=== PATIENT | female | born 1955 | race Caucasian/White ===

== ENCOUNTER 2017-08-01 22:04 | Emergency (ER) | payer OTHER ==
[2017-08-01 22:11] VITALS: RESP 16
--- NOTE | 2017-08-01 23:30 | ED PDOC ---
HPI: Abdomen Time Seen by Provider: 08/01/17 22:13 Chief Complaint (Nursing): Abdominal Pain Chief Complaint (Provider): Abdominal Pain History Per: Patient History/Exam Limitations: no limitations Onset/Duration Of Symptoms: Hrs (x3) Outside of [place] travel?: No Current Symptoms Are (Timing): Still Present Associated Symptoms: Nausea, Vomiting Last Bowel Movement: Days Ago (x2) Additional Complaint(s): 62 year old female presents to ED with complaints of abdominal pain x3 hours and has a past medical history of Hypertension. Patient notes that she had a right knee replacement at [facility] x1 week ago and has been taking 2 Percocet and Dulcolax QD. Reports daughter gave 3 Dulcolax pills at once x3 horus ago. (+) nausea and vomiting x several times (non-bloody, non-bilious). Confirms no bowel movement in the last 2 days. PCP: Tommy Past Medical History Reviewed: Historical Data, Nursing Documentation, Vital Signs Vital Signs: Last Vital Signs Temp 98.1 F 08/01/17 22:07 Pulse 67 08/01/17 22:07 Resp 16 08/01/17 22:07 BP 152/84 H 08/01/17 22:07 Pulse Ox 100 08/01/17 23:34 - Medical History PMH: HTN - Surgical History Other surgeries: Right knee replacement - Family History Family History: States: Unknown Family Hx - Social History Drugs: Denies - Home Medications Home Medications: Ambulatory Orders Medication Instructions Recorded Ondansetron [Zofran] 4 mg PO Q8H #12 tab 08/01/17 - Allergies Allergies/Adverse Reactions: Allergies Allergy/AdvReac Type Severity Reaction Status Date / Time No Known Allergies Allergy Verified 08/01/17 22:06 Review of Systems ROS Statement: Except As Marked, All Systems Reviewed And Found Negative Gastrointestinal: Positive for: Nausea, Vomiting, Abdominal Pain. Negative for : Hematemesis Physical Exam - Reviewed Nursing Documentation Reviewed: Yes Vital Signs Reviewed: Yes - Physical Exam Appears: Positive for: Uncomfortable Skin: Positive for: Normal Color, Warm, Dry Cardiovascular/Chest: Positive for: Regular Rate, Rhythm. Negative for: Murmur Respiratory: Positive for: Normal Breath Sounds. Negative for: Respiratory Distress Gastrointestinal/Abdominal: Positive for: Soft, Tenderness (minimally TTP) Extremity: Negative for: Deformity Neurologic/Psych: Positive for: Alert, Oriented. Negative for: Motor/Sensory Deficits - ECG O2 Sat by Pulse Oximetry: 100 (RA) Pulse Ox Interpretation: Normal Medical Decision Making Medical Decision Makin Initial impression: constipation Initial plan: * XR OBSTRUCTIVE SERIES * Enulose 20gm PO * Phosphate Enema 135mL DE * Zofran Inj 4mg IM * Re-evaluation 0000 Pt. had large BM after enema and is feeling much better. Explained proper use of laxatives and encouraged increased water consumption. Return precautions discussed. Scribe Attestation: Documented by Glory Dong acting as a scribe for Ricky Patel MD. Scribe Attestation: All medical record entries made by the Scribe were at my direction and personally dictated by me. I have reviewed the chart and agree that the record accurately reflects my personal performance of the history, physical exam, medical decision making, and the department course for this patient. I have also personally directed, reviewed, and agree with the discharge instructions and disposition. Disposition - Clinical Impression Clinical Impression: Constipation - Disposition Referrals: Tyrone Sanders MD [Staff Provider] - Disposition: Routine/Home Disposition Time: 00:00 Condition: IMPROVED Prescriptions: Ondansetron [Zofran] 4 mg PO Q8H #12 tab Instructions: Constipation (ED) Forms: [facility] (Arabic) Print Language: LUXEMBOURGISH
[2017-08-02 00:27] VITALS: BP 122/78; PULSE 86; TEMP 98.2; O2SAT 98
--- NOTE | 2017-08-02 11:54 | RAD ---
PROCEDURE: Radiographs of the chest and abdomen (obstructive series) HISTORY: abd pain, constipation s/p knee surgery/opiates COMPARISON: No prior. TECHNIQUE: AP radiograph of the chest, with upright and supine radiographs of the abdomen. FINDINGS: CHEST: Lungs: Clear. Cardiovascular: Normal size heart. No pulmonary vascular congestion. Pleura: No pleural fluid. No pneumothorax. Other findings: None. ABDOMEN AND PELVIS: Bowel: Unremarkable bowel gas pattern. No evidence of mechanical obstruction. Free air: None. Bones: Unremarkable. Other findings: None. IMPRESSION: Unremarkable radiographs of chest and abdomen. No evidence of mechanical bowel obstruction. Concordant results with the preliminary interpretation rendered by the emergency department physician procedure.
== END 2017-08-02 00:28 | disposition home or self-care (01) ==
LOC: H.ER 22:04
DX: K59.00 Constipation, unspecified (principal); I10 Essential (primary) hypertension
CPT/HCPCS: 74022; 96372; 99283; J2405

== ENCOUNTER 2018-01-24 10:13 | Inpatient (IN) | payer OTHER ==
[2018-01-24 10:32] VITALS: BMI 30.2
[2018-01-24] MEDS ORDERED: Sodium Chloride 0.9% 1,000 ML IV STA (11:06)
--- NOTE | 2018-01-24 11:10 | ED PDOC ---
Upper Extremity Pain/Injury Time Seen by Provider: 01/24/18 10:37 Chief Complaint (Nursing): Upper Extremity Problem/Injury Chief Complaint (Provider): Right elbow pain, swelling after hitting right against metal History Per: Patient History/Exam Limitations: no limitations Onset/Duration Of Symptoms: Days (6) Current Symptoms Are (Timing): Still Present Additional Complaint(s): 62 yo female with HTN presents with right elbow pain for 6 days. Pt states she hit the elbow against metal and didnt think anything off it. PT states she has a small scratch which developed into redness and now swelling. Pt states she cannot bent the right elbow due to pain and swelling. PT reports feeling feverisht with chilld last night. PT takes NSAIDs BID for left knee pain and states she took her normal dose this morning. Past Medical History Reviewed: Historical Data, Nursing Documentation, Vital Signs Vital Signs: Last Vital Signs Temp 98 F 01/24/18 10:57 Pulse 66 01/24/18 10:57 Resp 16 01/24/18 10:57 BP 104/67 01/24/18 10:57 Pulse Ox 96 01/24/18 10:57 - Medical History PMH: HTN - Surgical History Surgical History: No Surg Hx - Family History Family History: States: Unknown Family Hx - Living Arrangements Living Arrangements: With Family - Social History Current smoker - smoking cessation education provided: No Alcohol: None Drugs: Denies - Home Medications Home Medications: Ambulatory Orders Medication Instructions Recorded Cyanocobalamin [Vitamin B12 1000 1 tab PO DAILY 01/24/18 mcg Tab] Diclofenac Sodium [Voltaren] 75 mg PO Q12 01/24/18 Esomeprazole Magnesium [Nexium] 40 mg PO DAILY 01/24/18 Latanoprost 0.005% Opht [Xalatan 1 drop EACHEYE HS 01/24/18 Opht] Linaclotide [Linzess] 72 mcg PO HS 01/24/18 Multivitamin [Multi-Vitamin Daily] 1 tab PO DAILY 01/24/18 Turmeric Root Extract [Turmeric] 500 mg PO DAILY 01/24/18 amLODIPine [Norvasc] 5 mg PO HS 01/24/18 oxyCODONE/Acetaminophen [Percocet 1 tab PO Q6 PRN 01/24/18 5/325 mg Tab] - Allergies Allergies/Adverse Reactions: Allergies Allergy/AdvReac Type Severity Reaction Status Date / Time No Known Allergies Allergy Verified 01/24/18 10:57 Review of Systems ROS Statement: Except As Marked, All Systems Reviewed And Found Negative Constitutional: Positive for: Chills, Sweats. Negative for: Fever Musculoskeletal: Positive for: Other (Rigth elbow pain) Skin: Positive for: Other Physical Exam - Reviewed Nursing Documentation Reviewed: Yes Vital Signs Reviewed: Yes - Physical Exam Appears: Positive for: Well, Non-toxic, No Acute Distress Head Exam: Positive for: ATRAUMATIC, NORMAL INSPECTION, NORMOCEPHALIC Skin: Positive for: Normal Color, Warm, DRY Eye Exam: Positive for: Normal appearance ENT: Positive for: Normal ENT Inspection Neck: Positive for: Normal, Painless ROM Cardiovascular/Chest: Positive for: Regular Rate, Rhythm Respiratory: Positive for: Normal Breath Sounds. Negative for: Accessory Muscle Use, Respiratory Distress Pulses-Radial (L): 2+ Pulses-Radial (R): 2+ Back: Positive for: Normal Inspection Extremity: Positive for: Normal ROM, Tenderness, Swelling, Other (Erythema of the right elbow, warm to the touch) Neurologic/Psych: Positive for: Alert, Oriented - Laboratory Results Result Diagrams: 01/24/18 12:15 01/24/18 12:15 - ECG O2 Sat by Pulse Oximetry: 96 Medical Decision Making Medical Decision Making: No abscess on US. Elevated WBC Disposition - Clinical Impression Clinical Impression: Cellulitis - Patient ED Disposition Is Patient to be Admitted: No Counseled Patient/Family Regarding: Diagnosis, Need For Followup, Rx Given - Disposition Disposition: Routine/Home Disposition Time: 16:16 Condition: STABLE - Pt Status Changed To: Hospital Disposition Of: Inpatient - Admit Certification Admit to Inpatient:: After my assessment, the patient will require hospitalization for at least two midnights. This is because of the severity of symptoms shown, intensity of services needed, and/or the medical risk in this patient being treated as an outpatient. - POA Present On Arrival: None
--- NOTE | 2018-01-24 11:45 | RAD ---
PROCEDURE: Radiographs of the right elbow. HISTORY: Right elbow injury COMPARISON: No prior. FINDINGS: BONES: No definitive evidence of acute displaced fracture nor dislocation. The osseous structures appear intact. JOINTS: Joint spaces preserved. No significant osteoarthritis SOFT TISSUES: There appears to be mild dorsal soft tissue swelling. JOINT EFFUSION: No obvious posterior nor significant anterior joint effusion. OTHER FINDINGS: None. IMPRESSION: No definitive evidence of acute displaced fracture nor dislocation. . If symptoms persist or occult fracture suspected clinically recommend repeat radiographs 5-10 days as most fractures should become radiographically evident in this timeframe.
[2018-01-24 12:35] LABS: BASO # 0.2 K/uL (0.0-0.2); BASO % 1.3 % (0.0-2.0); EOS # 0.1 K/uL (0.0-0.7); EOS % 0.3 % (0.0-4.0); HEMOGLOBIN 13.2 g/dL (12.0-16.0); LYMPH # 2.4 K/uL (1.0-4.3); LYMPH % 13.9 % (20.0-40.0); MEAN CELL VOLUME 92.6 fl (81.0-99.0); MEAN CORPUSCULAR HEMOGLOBIN 30.6 pg (27.0-31.0); MEAN PLATELET VOLUME 10.8 fl (7.2-11.7); MONO # 1.8 K/uL (0.0-0.8); MONO % 10.1 % (0.0-10.0); NEUT % 74.4 % (50.0-75.0); RBC 4.32 Mil/uL (3.80-5.20); RED CELL DISTRIBUTION WIDTH 14.5 % (11.5-14.5); WHITE BLOOD COUNT 17.5 K/uL (4.8-10.8)
[2018-01-24 12:39] LABS: ALB/GLOB RATIO 1.1 (1.0-2.1); ALBUMIN 4.3 g/dL (3.5-5.0); CALCIUM 9.4 mg/dL (8.4-10.2)
[2018-01-24] MEDS ORDERED: Piperacillin/Tazobact 4.5 GM in Sodium Chloride 0.9% 100 ML IVPB ONE (15:30)
--- NOTE | 2018-01-24 17:37 | US ---
PROCEDURE: RIGHT ELBOW SOFT TISSUE ULTRASOUND HISTORY: R elbow r/o drainable abscess COMPARISON: NONE AVAILABLE TECHNIQUE: High-frequency ultrasonography of the subcutaneous soft tissue of the right elbow was performed including grayscale and color Doppler analysis. FINDINGS: Edematous changes are appreciated along the reticular planes throughout the right elbow subcutaneous fat without focal fluid collection to suggest seroma or abscess. There is no apparent drainable fluid collection appreciable and color per ultrasound is unremarkable throughout. IMPRESSION: No drainable fluid collection right elbow subcutaneous soft tissues as discussed above. Extensive subcutaneous edematous changes are appreciated at the clinically apparent affected area edema at and around the right elbow dorsal soft tissue distribution.
--- NOTE | 2018-01-24 18:10 | CP.PCM.HP ---
History of Present Illness - History of Present Illness History of Present Illness: CC: Right elbow pain HPI: 62 year old female PMH HTN and Glaucoma presents after trauma to her elbow 6 days ago. Pt has mod to severe sharp and aching pain R elbow, associated with erythema and worsening pain. On exam elbow is erythematous, warm, blanching, has a pustulent area with questionable surrounding sporadic blister formation. WBC 17K, TMax 101.5, subjective chills for 2 days. US elbow, no drainable area. Pt received Vanc and Zosyn in ED. Will treat with Vancomycin, observe for worsening sx. Otherwise HD stable, NAD. ROS: Per HPI, all other systems reviewed and neg PMH: HTN Glaucoma FH: denies SH: denies tobacco, ETOH, IVDU NKDA PMD: Dr. Bill Sanders Vitals Reviewed GEN: WDWN, alert, cooperative HEENT: NCAT, PERRL, EOMI HEART: RRR, +S1S2, NO MRG LUNG: CTAB, NO WRR ABD: soft, NT, ND, No HSM, No masses EXT: normal pedal pulses, normal capillary refill NEURO: awake, alert, no focal deficits SKIN: warm, dry erythma warm blanching r elbow PSYCH: normal mood, normal affect LABS Most Recent Lab Values WBC 17.5 K/uL (4.8-10.8) H 01/24/18 12:15 RBC 4.32 Mil/uL (3.80-5.20) 01/24/18 12:15 Hgb 13.2 g/dL (12.0-16.0) 01/24/18 12:15 Hct 40.0 % (34.0-47.0) 01/24/18 12:15 MCV 92.6 fl (81.0-99.0) 01/24/18 12:15 MCH 30.6 pg (27.0-31.0) 01/24/18 12:15 MCHC 33.0 g/dL (33.0-37.0) 01/24/18 12:15 RDW 14.5 % (11.5-14.5) 01/24/18 12:15 Plt Count 193 K/uL (130-400) 01/24/18 12:15 MPV 10.8 fl (7.2-11.7) 01/24/18 12:15 Neut % (Auto) 74.4 % (50.0-75.0) 01/24/18 12:15 Lymph % (Auto) 13.9 % (20.0-40.0) L 01/24/18 12:15 Kimball % (Auto) 10.1 % (0.0-10.0) H 01/24/18 12:15 Eos % (Auto) 0.3 % (0.0-4.0) 01/24/18 12:15 Baso % (Auto) 1.3 % (0.0-2.0) 01/24/18 12:15 Neut # (Auto) 13.0 K/uL (1.8-7.0) H 01/24/18 12:15 Lymph # (Auto) 2.4 K/uL (1.0-4.3) 01/24/18 12:15 Kimball # (Auto) 1.8 K/uL (0.0-0.8) H 01/24/18 12:15 Eos # (Auto) 0.1 K/uL (0.0-0.7) 01/24/18 12:15 Baso # (Auto) 0.2 K/uL (0.0-0.2) 01/24/18 12:15 Sodium 144 mmol/l (132-148) 01/24/18 12:15 Potassium 4.9 MMOL/L (3.6-5.0) 01/24/18 12:15 Chloride 101 mmol/L (98-107) 01/24/18 12:15 Carbon Dioxide 26 mmol/L (22-30) 01/24/18 12:15 Anion Gap 22 (10-20) H 01/24/18 12:15 BUN 20 mg/dl (7-17) H 01/24/18 12:15 Creatinine 1.2 mg/dl (0.7-1.2) 01/24/18 12:15 Est GFR ( Amer) 55 01/24/18 12:15 Est GFR (Non-Af Amer) 46 01/24/18 12:15 Random Glucose 97 mg/dL (65-105) 01/24/18 12:15 Calcium 9.4 mg/dL (8.4-10.2) 01/24/18 12:15 Total Bilirubin 0.9 mg/dl (0.2-1.3) 01/24/18 12:15 AST 39 U/L (14-36) H 01/24/18 12:15 ALT 42 U/L (9-52) 01/24/18 12:15 Alkaline Phosphatase 59 U/L (38-126) 01/24/18 12:15 Total Protein 8.3 G/DL (6.3-8.2) H 01/24/18 12:15 Albumin 4.3 g/dL (3.5-5.0) 01/24/18 12:15 Globulin 4.0 gm/dL (2.2-3.9) H 01/24/18 12:15 Albumin/Globulin Ratio 1.1 (1.0-2.1) 01/24/18 12:15 IMAGING STUDIES US elbow, no drainable area ASSESSMENT AND PLAN 62 year old female PMH HTN and Glaucoma presents after trauma to her elbow 6 days ago. Pt has mod to severe sharp and aching pain R elbow, associated with erythema and worsening pain. On exam elbow is erythematous, warm, blanching, has a pustulent area with questionable surrounding sporadic blister formation. WBC 17K, TMax 101.5, subjective chills for 2 days. US elbow, no drainable area. Pt received Vanc and Zosyn in ED. Will treat with Vancomycin, observe for worsening sx. Otherwise HD stable, NAD. Cellulitis R elbow - WBC 17K, fever 101.5 in ED, subjective chills - US Elbow no drainable area - cont Vancomycin q12 - monitor for worsening sx - blood cx sent Azotemia - cont NS @ 125 for hydration - insensible losses 2/2 fever HTN - cont Amlodipine Glaucoma - cont drops VTE LOVENOX Present on Admission - Present on Admission Any Indicators Present on Admission: No Past Patient History - Past Social History Alcohol: None Drugs: Denies - CARDIAC Hx Hypertension: Yes - PSYCHIATRIC Hx Substance Use: No - SURGICAL HISTORY Hx Orthopedic Surgery: Yes (lt knee) - ANESTHESIA Hx Anesthesia: Yes Hx Anesthesia Reactions: No Meds Allergies/Adverse Reactions: Allergies Allergy/AdvReac Type Severity Reaction Status Date / Time No Known Allergies Allergy Verified 01/24/18 10:57 Results - Vital Signs Recent Vital Signs: Last Vital Signs Temp 98 F 01/24/18 10:57 Pulse 66 01/24/18 10:57 Resp 16 01/24/18 10:57 BP 104/67 01/24/18 10:57 Pulse Ox 96 01/24/18 11:11 - Labs Result Diagrams: 01/24/18 12:15 01/24/18 12:15 Labs: Laboratory Results - last 24 hr 01/24/18 01/24/18 12:15 12:15 WBC 17.5 H RBC 4.32 Hgb 13.2 Hct 40.0 MCV 92.6 MCH 30.6 MCHC 33.0 RDW 14.5 Plt Count 193 MPV 10.8 Neut % (Auto) 74.4 Lymph % (Auto) 13.9 L Kimball % (Auto) 10.1 H Eos % (Auto) 0.3 Baso % (Auto) 1.3 Neut # (Auto) 13.0 H Lymph # (Auto) 2.4 Kimball # (Auto) 1.8 H Eos # (Auto) 0.1 Baso # (Auto) 0.2 Sodium 144 Potassium 4.9 Chloride 101 Carbon Dioxide 26 Anion Gap 22 H BUN 20 H Creatinine 1.2 Est GFR ( Amer) 55 Est GFR (Non-Af Amer) 46 Random Glucose 97 Calcium 9.4 Total Bilirubin 0.9 AST 39 H ALT 42 Alkaline Phosphatase 59 Total Protein 8.3 H Albumin 4.3 Globulin 4.0 H Albumin/Globulin Ratio 1.1
[2018-01-24] MEDS: Latanoprost 0.005% Opht SOUTION OU SCH (21:18)
[2018-01-25 06:46] LABS: BASO # 0.1 K/uL (0.0-0.2); BASO % 0.4 % (0.0-2.0); EOS % 0.2 % (0.0-4.0); HEMOGLOBIN 13.5 g/dL (12.0-16.0); LYMPH # 2.4 K/uL (1.0-4.3); LYMPH % 13.4 % (20.0-40.0); MEAN CELL VOLUME 93.7 fl (81.0-99.0); MEAN CORPUSCULAR HEMOGLOBIN 30.7 pg (27.0-31.0); MEAN CORPUSCULAR HGB CONC 32.7 g/dL (33.0-37.0); MEAN PLATELET VOLUME 10.9 fl (7.2-11.7); MONO # 1.8 K/uL (0.0-0.8); MONO % 10.1 % (0.0-10.0); NEUT # 13.7 K/uL (1.8-7.0); NEUT % 75.9 % (50.0-75.0); NRBC % 0.1 % (0.0-0.0); RBC 4.41 Mil/uL (3.80-5.20); RED CELL DISTRIBUTION WIDTH 14.6 % (11.5-14.5); WHITE BLOOD COUNT 18.1 K/uL (4.8-10.8)
[2018-01-25 06:52] LABS: BLOOD UREA NITROGEN 16 mg/dl (7-17); CALCIUM 9.2 mg/dL (8.4-10.2); GFR AFRICAN-AMERICAN > 60; GFR NON-AFRICAN AMERICAN 56
[2018-01-25] MEDS: Enoxaparin 40 mg Syringe SC SCH (08:30)
--- NOTE | 2018-01-25 11:23 | CARD ---
APPROVED REPORT EKG Measurement Heart [id number] <Conclusion> Normal sinus rhythm Normal ECG
--- NOTE | 2018-01-25 14:30 | CP.PCM.PN ---
Subjective - Date & Time of Evaluation Date of Evaluation: 01/25/18 Time of Evaluation: 12:30 - Subjective Subjective: Patient seen and examined. Pain on right elbow more tolerable but notice swelling extending to the hand. No fever. Objective - Vital Signs/Intake and Output Vital Signs (last 24 hours): Temp Pulse Resp BP Pulse Ox 99.6 F 98 H 20 108/63 96 01/25/18 08:29 01/25/18 08:29 01/25/18 08:29 01/25/18 08:29 01/25/18 08:29 - Medications Medications: Current Medications Amlodipine Besylate (Norvasc) 5 mg PO HS [facility] Last Admin: 01/24/18 21:17 Dose: 5 mg Cyanocobalamin (Vitamin B12 1000 Mcg Tab) 1,000 mcg PO DAILY [facility] Last Admin: 01/25/18 08:30 Dose: 1,000 mcg Enoxaparin Sodium (Lovenox) 40 mg SC DAILY [facility] PRN Reason: Protocol Last Admin: 01/25/18 08:30 Dose: 40 mg Vancomycin HCl 1 gm/ Sodium (Chloride) 250 mls @ 166.667 mls/hr IVPB Q12H [facility] PRN Reason: Protocol Last Admin: 01/25/18 03:53 Dose: 166.667 mls/hr Ibuprofen (Motrin Tab) 600 mg PO Q6 PRN PRN Reason: fever > 100.3 Ketorolac Tromethamine (Toradol) 15 mg IVP Q6 PRN PRN Reason: Pain, moderate (4-7) Last Admin: 01/25/18 13:21 Dose: 15 mg Latanoprost (Xalatan Opht) 1 drop OU HS [facility] Last Admin: 01/24/18 21:18 Dose: 1 drop - Labs Labs: 01/25/18 05:50 01/25/18 05:50 - Constitutional Appears: No Acute Distress - Head Exam Head Exam: ATRAUMATIC - Eye Exam Eye Exam: absent: Scleral icterus - ENT Exam ENT Exam: Mucous Membranes Moist - Neck Exam Neck Exam: absent: Meningismus - Respiratory Exam Respiratory Exam: absent: Rales, Rhonchi, Wheezes, Respiratory Distress - Cardiovascular Exam Cardiovascular Exam: REGULAR RHYTHM, +S1, +S2 - GI/Abdominal Exam GI & Abdominal Exam: Soft. absent: Tenderness - Rectal Exam Rectal Exam: Deferred - Extremities Exam Extremities Exam: absent: Full ROM (limited ROM on right elbow secondary to swelling extending to the dorsum of the hand) - Neurological Exam Neurological Exam: Alert, Oriented x3 - Psychiatric Exam Psychiatric exam: Normal Affect - Skin Skin Exam: Dry, Intact Assessment and Plan - Assessment and Plan (Free Text) Assessment: 62 yo female with history of HTN and Glaucoma came in because of pain and swelling of the right elbow after banging it hard on a metal 6 days ago. Denied having fever or chills. 1. Cellulitis Right Elbow has been afebrile but WBC remained high US of the right elbow: extensive subcutaneous edema without focal fluid collection continue Vancomycin 1gm IV q 12hrs pain more tolerable although edema extended to the dorsum of the right hand 2. HTN BP stable continue Amlodipine 3. Glaucoma continue eye drops 4. DVT prophylaxis on Lovenox 40mg SC daily
[2018-01-25] MEDS: Latanoprost 0.005% Opht SOUTION OU SCH (23:06)
[2018-01-26 06:58] LABS: BASO # 0.1 K/uL (0.0-0.2); BASO % 0.4 % (0.0-2.0); EOS # 0.1 K/uL (0.0-0.7); EOS % 0.5 % (0.0-4.0); HEMOGLOBIN 12.6 g/dL (12.0-16.0); LYMPH # 3.3 K/uL (1.0-4.3); LYMPH % 20.5 % (20.0-40.0); MEAN CELL VOLUME 92.5 fl (81.0-99.0); MEAN CORPUSCULAR HEMOGLOBIN 30.6 pg (27.0-31.0); MEAN CORPUSCULAR HGB CONC 33.1 g/dL (33.0-37.0); MEAN PLATELET VOLUME 10.6 fl (7.2-11.7); MONO # 1.9 K/uL (0.0-0.8); MONO % 11.6 % (0.0-10.0); NEUT # 10.7 K/uL (1.8-7.0); NRBC % 0.1 % (0.0-0.0); RBC 4.11 Mil/uL (3.80-5.20); RED CELL DISTRIBUTION WIDTH 14.3 % (11.5-14.5)
[2018-01-26] MEDS: Enoxaparin 40 mg Syringe SC SCH (09:16)
--- NOTE | 2018-01-26 12:34 | CP.PCM.PN ---
Subjective - Date & Time of Evaluation Date of Evaluation: 01/26/18 Time of Evaluation: 12:00 - Subjective Subjective: Patient seen and examined. Still have pain on right elbow but more tolerable. Had fever last night. Objective - Vital Signs/Intake and Output Vital Signs (last 24 hours): Temp Pulse Resp BP Pulse Ox 98.2 F 62 20 125/73 95 01/26/18 08:25 01/26/18 08:25 01/26/18 08:25 01/26/18 08:25 01/26/18 08:25 - Medications Medications: Current Medications Amlodipine Besylate (Norvasc) 5 mg PO HS [facility] Last Admin: 01/25/18 23:06 Dose: 5 mg Cyanocobalamin (Vitamin B12 1000 Mcg Tab) 1,000 mcg PO DAILY [facility] Last Admin: 01/26/18 09:15 Dose: 1,000 mcg Enoxaparin Sodium (Lovenox) 40 mg SC DAILY [facility] PRN Reason: Protocol Last Admin: 01/26/18 09:16 Dose: 40 mg Vancomycin HCl 1 gm/ Sodium (Chloride) 250 mls @ 166.667 mls/hr IVPB Q12H [facility] PRN Reason: Protocol Last Admin: 01/26/18 03:41 Dose: 166.667 mls/hr Ampicillin Sodium/Sulbactam (Sodium 1.5 gm/ Sodium Chloride) 100 mls @ 100 mls/ hr IVPB Q6 [facility] PRN Reason: Protocol Ibuprofen (Motrin Tab) 600 mg PO Q6 PRN PRN Reason: fever > 100.3 Last Admin: 01/25/18 23:05 Dose: 600 mg Ketorolac Tromethamine (Toradol) 15 mg IVP Q6 PRN PRN Reason: Pain, moderate (4-7) Last Admin: 01/26/18 09:16 Dose: 15 mg Latanoprost (Xalatan Opht) 1 drop OU HS [facility] Last Admin: 01/25/18 23:06 Dose: 1 drop - Labs Labs: 01/26/18 05:30 01/25/18 05:50 - Constitutional Appears: No Acute Distress - Head Exam Head Exam: ATRAUMATIC - Eye Exam Eye Exam: absent: Scleral icterus - ENT Exam ENT Exam: Mucous Membranes Moist - Neck Exam Neck Exam: absent: Meningismus - Respiratory Exam Respiratory Exam: absent: Rales, Rhonchi, Wheezes, Respiratory Distress - Cardiovascular Exam Cardiovascular Exam: REGULAR RHYTHM, +S1, +S2 - GI/Abdominal Exam GI & Abdominal Exam: Soft. absent: Tenderness - Rectal Exam Rectal Exam: Deferred - Extremities Exam Extremities Exam: Joint Swelling (right elbow swelling extending distally down to the dorsum of the hand) - Back Exam Back Exam: absent: tenderness - Neurological Exam Neurological Exam: Alert, Oriented x3 - Psychiatric Exam Psychiatric exam: Normal Affect - Skin Skin Exam: Dry, Intact Assessment and Plan - Assessment and Plan (Free Text) Assessment: 62 yo female with history of HTN and Glaucoma came in because of pain and swelling of the right elbow after banging it hard on a metal 6 days ago. Denied having fever or chills. 1. Cellulitis Right Elbow had fever last night US of the right elbow: extensive subcutaneous edema without focal fluid collection Vanco level: 25.1 hold next dose of Vanco, resume at lower dose when trough is at therapeutic level Unasyn 1.5gm IV q 6hrs follow up blood and wound culture ID consult with Dr Alarcon (message left) 2. HTN BP stable continue Amlodipine 3. Glaucoma continue eye drops 4. DVT prophylaxis on Lovenox 40mg SC daily
[2018-01-26] MEDS: Latanoprost 0.005% Opht SOUTION OU SCH (21:40)
--- NOTE | 2018-01-27 08:05 | CP.PCM.PN ---
Subjective - Date & Time of Evaluation Date of Evaluation: 01/27/18 Time of Evaluation: 08:05 - Subjective Subjective: pt +constipation pain improving hd stable nad Objective - Vital Signs/Intake and Output Vital Signs (last 24 hours): Temp Pulse Resp BP Pulse Ox 99.1 F 87 20 133/83 98 01/26/18 23:59 01/26/18 23:59 01/26/18 23:59 01/26/18 23:59 01/26/18 23:59 Intake and Output: Vitals Reviewed GEN: WDWN, alert, cooperative HEENT: NCAT, PERRL, EOMI HEART: RRR, +S1S2, NO MRG LUNG: CTAB, NO WRR ABD: soft, NT, ND, No HSM, No masses EXT: normal pedal pulses, normal capillary refill NEURO: awake, alert, no focal deficits SKIN: warm, dry PSYCH: normal mood, normal affect - Medications Medications: Current Medications Acetaminophen (Tylenol 325mg Tab) 650 mg PO Q4 PRN PRN Reason: Headache Last Admin: 01/27/18 00:18 Dose: 650 mg Amlodipine Besylate (Norvasc) 5 mg PO HS [facility] Last Admin: 01/26/18 21:44 Dose: 5 mg Cyanocobalamin (Vitamin B12 1000 Mcg Tab) 1,000 mcg PO DAILY [facility] Last Admin: 01/26/18 09:15 Dose: 1,000 mcg Enoxaparin Sodium (Lovenox) 40 mg SC DAILY [facility] PRN Reason: Protocol Last Admin: 01/26/18 09:16 Dose: 40 mg Ampicillin Sodium/Sulbactam (Sodium 1.5 gm/ Sodium Chloride) 100 mls @ 100 mls/ hr IVPB Q6 [facility] PRN Reason: Protocol Last Admin: 01/27/18 04:35 Dose: 100 mls/hr Vancomycin HCl 1 gm/ Sodium (Chloride) 250 mls @ 166.667 mls/hr IVPB 0900,2100 [facility] PRN Reason: Protocol Ibuprofen (Motrin Tab) 600 mg PO Q6 PRN PRN Reason: fever > 100.3 Last Admin: 01/25/18 23:05 Dose: 600 mg Ketorolac Tromethamine (Toradol) 15 mg IVP Q6 PRN PRN Reason: Pain, moderate (4-7) Last Admin: 01/26/18 17:00 Dose: 15 mg Latanoprost (Xalatan Opht) 1 drop OU HS [facility] Last Admin: 01/26/18 21:40 Dose: 1 drop - Labs Labs: 01/26/18 05:30 01/25/18 05:50 Assessment and Plan - Assessment and Plan (Free Text) Plan: 62 yo female with history of HTN and Glaucoma came in because of pain and swelling of the right elbow after banging it hard on a metal 6 days ago. Denied having fever or chills. Pt very difficult IV access, PICC inserted as patient refused to have any more attempts. Miralax and Dulcolax given for constipation. Cultures +Gram + cocci. Will await sens. 1. Cellulitis Right Elbow had fever last night US of the right elbow: extensive subcutaneous edema without focal fluid collection Vanco level: 25.1, refused trough today. Will reattempt with PICC placement hold next dose of Vanco, resume at lower dose when trough is at therapeutic level Unasyn 1.5gm IV q 6hrs follow up blood and wound culture ID consult with Dr Alarcon (message left) 2. HTN BP stable continue Amlodipine 3. Glaucoma continue eye drops 4. DVT prophylaxis on Lovenox 40mg SC daily
[2018-01-27] MEDS ORDERED: POLYETHYLENE GLYCOL 3350 17 GM/Dose PACKET PO ONE (09:26)
[2018-01-27] MEDS ORDERED: Bisacodyl 5mg EC Tab PO ONE (09:26)
[2018-01-27] MEDS: Enoxaparin 40 mg Syringe SC SCH ×2 (12:03→12:15)
[2018-01-27] MEDS ORDERED: Lidocaine 1% Inj (20ml) ONE (13:06)
--- NOTE | 2018-01-27 13:24 | PCM.SURG1 ---
Surgeon's Initial Post Op Note - Surgeon's Notes Surgeon: Anirudh Biology Lecturer: None Type of Anesthesia: Local Pre-Operative Diagnosis: Infection Operative Findings: Patent left basilic vein Post-Operative Diagnosis: Same Operation Performed: Left basilic vein 41cm SL PICC with the tip in the prox RA Specimen/Specimens Removed: None Estimated Blood Loss: EBL {In ML}: 1 Date of Surgery/Procedure: 01/27/18 Time of Surgery/Procedure: 13:20
[2018-01-27] MEDS: Latanoprost 0.005% Opht SOUTION OU SCH (21:46)
[2018-01-28 06:42] LABS: HEMOGLOBIN 13.1 g/dL (12.0-16.0); MEAN CELL VOLUME 92.8 fl (81.0-99.0); MEAN CORPUSCULAR HEMOGLOBIN 30.9 pg (27.0-31.0); MEAN CORPUSCULAR HGB CONC 33.3 g/dL (33.0-37.0); RBC 4.22 Mil/uL (3.80-5.20); WHITE BLOOD COUNT 14.7 K/uL (4.8-10.8)
[2018-01-28] MEDS: Enoxaparin 40 mg Syringe SC SCH (08:54)
--- NOTE | 2018-01-28 11:17 | CP.PCM.PN ---
Subjective - Date & Time of Evaluation Date of Evaluation: 01/28/18 Time of Evaluation: 10:30 - Subjective Subjective: Pt is afebrile today Right elbow abscess draining purulent material pain and swelling better today still erythematous denies CP no SOB + constipation Objective - Vital Signs/Intake and Output Vital Signs (last 24 hours): Temp Pulse Resp BP Pulse Ox 98.4 F 66 20 142/74 97 01/28/18 08:17 01/28/18 08:17 01/28/18 08:17 01/28/18 08:17 01/28/18 08:17 - Medications Medications: Current Medications Acetaminophen (Tylenol 325mg Tab) 650 mg PO Q4 PRN PRN Reason: Headache Last Admin: 01/27/18 20:26 Dose: 650 mg Amlodipine Besylate (Norvasc) 5 mg PO HS COUNT INCLUDES THE [facility] Last Admin: 01/27/18 21:47 Dose: 5 mg Cyanocobalamin (Vitamin B12 1000 Mcg Tab) 1,000 mcg PO DAILY COUNT INCLUDES THE [facility] Last Admin: 01/28/18 08:54 Dose: 1,000 mcg Enoxaparin Sodium (Lovenox) 40 mg SC DAILY COUNT INCLUDES THE [facility] PRN Reason: Protocol Last Admin: 01/28/18 08:54 Dose: 40 mg Ampicillin Sodium/Sulbactam (Sodium 1.5 gm/ Sodium Chloride) 100 mls @ 100 mls/ hr IVPB Q6 COUNT INCLUDES THE [facility] PRN Reason: Protocol Last Admin: 01/28/18 09:06 Dose: 100 mls/hr Vancomycin HCl 1 gm/ Sodium (Chloride) 250 mls @ 166.667 mls/hr IVPB 0900,2100 COUNT INCLUDES THE [facility] PRN Reason: Protocol Last Admin: 01/28/18 08:49 Dose: 166.667 mls/hr Ibuprofen (Motrin Tab) 600 mg PO Q6 PRN PRN Reason: fever > 100.3 Last Admin: 01/25/18 23:05 Dose: 600 mg Ketorolac Tromethamine (Toradol) 15 mg IVP Q6 PRN PRN Reason: Pain, moderate (4-7) Last Admin: 01/28/18 09:29 Dose: 15 mg Latanoprost (Xalatan Opht) 1 drop OU HS COUNT INCLUDES THE [facility] Last Admin: 01/27/18 21:46 Dose: 1 drop Mupirocin (Bactroban Ointment) 1 applic TOP BID COUNT INCLUDES THE [facility] Last Admin: 01/28/18 08:53 Dose: 1 applic - Labs Labs: 01/28/18 06:32 01/25/18 05:50 - Constitutional Appears: No Acute Distress - Head Exam Head Exam: ATRAUMATIC, NORMAL INSPECTION, NORMOCEPHALIC - Eye Exam Eye Exam: EOMI, Normal appearance Pupil Exam: NORMAL ACCOMODATION - ENT Exam ENT Exam: Mucous Membranes Moist, Normal External Ear Exam - Neck Exam Neck Exam: Full ROM. absent: Meningismus - Respiratory Exam Respiratory Exam: NORMAL BREATHING PATTERN. absent: Wheezes, Respiratory Distress - Cardiovascular Exam Cardiovascular Exam: REGULAR RHYTHM, +S1, +S2 - GI/Abdominal Exam GI & Abdominal Exam: Soft, Normal Bowel Sounds. absent: Tenderness - Extremities Exam Extremities Exam: Full ROM, Normal Capillary Refill. absent: Calf Tenderness, Pedal Edema Additional comments: right arm ( close to elbow) abscess with purulent drainage , erythematous, some tenderness full ROM of elbow , - Back Exam Back Exam: Full ROM. absent: CVA tenderness (L), CVA tenderness (R), vertebral tenderness - Neurological Exam Neurological Exam: Alert, Awake, CN II-XII Intact, Oriented x3 Neuro motor strength exam: Left Upper Extremity: 5, Right Upper Extremity: 5, Left Lower Extremity: 5, Right Lower Extremity: 5 - Psychiatric Exam Psychiatric exam: Normal Affect, Normal Mood - Skin Skin Exam: Dry, Normal Color, Warm Assessment and Plan - Assessment and Plan (Free Text) Assessment: 62 yo female with history of HTN and Glaucoma came in because of pain and swelling of the right elbow after banging it hard on a metal 6 days ago. Denied having fever or chills. Wound c/s : Staph aureus Pt very difficult IV access, PICC inserted as patient refused to have any more attempts. Miralax and Dulcolax given for constipation. 1. Cellulitis and abscess Right Elbow Afebrile today, still with leukocytosis, pain and swelling better WBC CT 17.5 now down to 14.5K US of the right elbow: extensive subcutaneous edema without focal fluid collection Xray of elbow :negative ID consult with Dr Alarcon Wound C/S: MSSA Pt is on IV Vanco and Unasyn 2. HTN BP stable continue Amlodipine 3. Glaucoma continue eye drops 4. Constipation will give Lactulose DVT prophylaxis on Lovenox 40mg SC daily
--- NOTE | 2018-01-28 11:47 | CP.PCM.CON ---
History of Present Illness - History of Present Illness History of Present Illness: 62 yo female with history of HTN and Glaucoma came in because of pain and swelling of the right elbow after banging it hard on a metal 6 days ago. Denied having fever or chills. pt had I & D done growing staph aureus penicillin resistant Past Patient History - Past Medical History & Family History Past Medical History?: Yes - Past Social History Smoking Status: Former Smoker - CARDIAC Hx Cardiac Disorders: Yes (HTN) Hx Hypertension: Yes - PULMONARY Hx Respiratory Disorders: No - NEUROLOGICAL Hx Neurological Disorder: No - HEENT Hx HEENT Problems: No - RENAL Hx Chronic Kidney Disease: No - ENDOCRINE/METABOLIC Hx Endocrine Disorders: No - HEMATOLOGICAL/ONCOLOGICAL Hx Blood Disorders: No - INTEGUMENTARY Hx Dermatological Problems: Yes Hx Cellulitis: Yes - MUSCULOSKELETAL/RHEUMATOLOGICAL Hx Musculoskeletal Disorders: Yes (Lt knee surgery) Hx Falls: No - GASTROINTESTINAL Hx Gastrointestinal Disorders: Yes Hx Gastroesophageal Reflux: Yes - GENITOURINARY/GYNECOLOGICAL Hx Genitourinary Disorders: No - PSYCHIATRIC Hx Psychophysiologic Disorder: No Hx Substance Use: Yes - SURGICAL HISTORY Hx Surgeries: Yes Hx Orthopedic Surgery: Yes (L knee sx) - ANESTHESIA Hx Anesthesia: Yes Hx Anesthesia Reactions: No Hx Malignant Hyperthermia: No Meds Allergies/Adverse Reactions: Allergies Allergy/AdvReac Type Severity Reaction Status Date / Time No Known Allergies Allergy Verified 01/24/18 10:57 - Medications Medications: Current Medications Acetaminophen (Tylenol 325mg Tab) 650 mg PO Q4 PRN PRN Reason: Headache Last Admin: 01/27/18 20:26 Dose: 650 mg Amlodipine Besylate (Norvasc) 5 mg PO HS [facility]ENG Last Admin: 01/27/18 21:47 Dose: 5 mg Cyanocobalamin (Vitamin B12 1000 Mcg Tab) 1,000 mcg PO DAILY [facility] Last Admin: 01/28/18 08:54 Dose: 1,000 mcg Enoxaparin Sodium (Lovenox) 40 mg SC DAILY [facility]ENG PRN Reason: Protocol Last Admin: 01/28/18 08:54 Dose: 40 mg Ampicillin Sodium/Sulbactam (Sodium 1.5 gm/ Sodium Chloride) 100 mls @ 100 mls/ hr IVPB Q6 [facility]ENG PRN Reason: Protocol Last Admin: 01/28/18 09:06 Dose: 100 mls/hr Vancomycin HCl 1 gm/ Sodium (Chloride) 250 mls @ 166.667 mls/hr IVPB 0900,2100 [facility] PRN Reason: Protocol Last Admin: 01/28/18 08:49 Dose: 166.667 mls/hr Ibuprofen (Motrin Tab) 600 mg PO Q6 PRN PRN Reason: fever > 100.3 Last Admin: 01/25/18 23:05 Dose: 600 mg Ketorolac Tromethamine (Toradol) 15 mg IVP Q6 PRN PRN Reason: Pain, moderate (4-7) Last Admin: 01/28/18 09:29 Dose: 15 mg Latanoprost (Xalatan Opht) 1 drop OU HS [facility] Last Admin: 01/27/18 21:46 Dose: 1 drop Mupirocin (Bactroban Ointment) 1 applic TOP BID [facility] Last Admin: 01/28/18 08:53 Dose: 1 applic Physical Exam - Constitutional Additional comments: lying comfortably in bed - Extremities Exam Additional comments: right elbow in bandage. ROM of elbow without pain Results - Vital Signs Recent Vital Signs: Last Vital Signs Temp 98.4 F 01/28/18 08:17 Pulse 66 01/28/18 08:17 Resp 20 01/28/18 08:17 BP 142/74 01/28/18 08:17 Pulse Ox 97 01/28/18 08:17 - Labs Result Diagrams: 01/28/18 06:32 01/25/18 05:50 Labs: Laboratory Results - last 24 hr 01/27/18 01/28/18 15:39 06:32 WBC 14.7 H RBC 4.22 Hgb 13.1 Hct 39.2 MCV 92.8 MCH 30.9 MCHC 33.3 RDW 14.0 Plt Count 248 Vancomycin Trough < 5.0 L Assessment & Plan - Assessment and Plan (Free Text) Assessment: right elbow area cellulitis with staph aureus PCN resistant but oxacillin sensitive. Can switch to Augmentin 875 mg po bid at the time of discharge for a total of 7 more days
[2018-01-28] MEDS: Latanoprost 0.005% Opht SOUTION OU SCH (21:30)
[2018-01-29 07:54] VITALS: O2SAT 98
[2018-01-29] MEDS: Enoxaparin 40 mg Syringe SC SCH (09:22)
[2018-01-29 09:33] LABS: BASO # 0.1 K/uL (0.0-0.2); BASO % 1.3 % (0.0-2.0); EOS # 0.3 K/uL (0.0-0.7); EOS % 2.7 % (0.0-4.0); HEMOGLOBIN 12.4 g/dL (12.0-16.0); LYMPH # 2.7 K/uL (1.0-4.3); LYMPH % 25.9 % (20.0-40.0); MEAN CELL VOLUME 92.6 fl (81.0-99.0); MEAN CORPUSCULAR HEMOGLOBIN 31.6 pg (27.0-31.0); MEAN CORPUSCULAR HGB CONC 34.1 g/dL (33.0-37.0); MEAN PLATELET VOLUME 9.9 fl (7.2-11.7); MONO # 0.8 K/uL (0.0-0.8); MONO % 7.8 % (0.0-10.0); NEUT # 6.6 K/uL (1.8-7.0); NEUT % 62.3 % (50.0-75.0); NRBC % 0.2 % (0.0-0.0); RBC 3.91 Mil/uL (3.80-5.20); RED CELL DISTRIBUTION WIDTH 14.1 % (11.5-14.5); WHITE BLOOD COUNT 10.6 K/uL (4.8-10.8)
--- NOTE | 2018-01-29 11:20 | CP.PCM.DIS ---
Provider - Provider Date of Admission: 01/25/18 10:16 Attending physician: Milagros Wallace DO Primary care physician: DR Sanders Consults: ID: Dr Alarcon Time Spent in preparation of Discharge (in minutes): 30 Diagnosis - Discharge Diagnosis (1) Cellulitis and abscess of upper arm and forearm Status: Acute (2) Constipation Status: Acute (3) HTN (hypertension) Status: Chronic Hospital Course - Lab Results Lab Results: Micro Results 01/24/18 12:15 Blood Blood Culture - Preliminary NO GROWTH AFTER 4 DAYS 01/26/18 13:59 Elbow - Right Gram Stain - Final 01/26/18 13:59 Elbow - Right Wound Culture - Final Staphylococcus Aureus Most Recent Lab Values WBC 10.6 K/uL (4.8-10.8) 01/29/18 09:26 RBC 3.91 Mil/uL (3.80-5.20) 01/29/18 09:26 Hgb 12.4 g/dL (12.0-16.0) 01/29/18 09:26 Hct 36.2 % (34.0-47.0) 01/29/18 09:26 MCV 92.6 fl (81.0-99.0) 01/29/18 09:26 MCH 31.6 pg (27.0-31.0) H 01/29/18 09:26 MCHC 34.1 g/dL (33.0-37.0) 01/29/18 09:26 RDW 14.1 % (11.5-14.5) 01/29/18 09:26 Plt Count 259 K/uL (130-400) 01/29/18 09:26 MPV 9.9 fl (7.2-11.7) 01/29/18 09:26 Neut % (Auto) 62.3 % (50.0-75.0) 01/29/18 09:26 Lymph % (Auto) 25.9 % (20.0-40.0) 01/29/18 09:26 Atkinson % (Auto) 7.8 % (0.0-10.0) 01/29/18 09:26 Eos % (Auto) 2.7 % (0.0-4.0) 01/29/18 09:26 Baso % (Auto) 1.3 % (0.0-2.0) 05/19/18 09:26 Neut # (Auto) 6.6 K/uL (1.8-7.0) 01/29/18 09:26 Lymph # (Auto) 2.7 K/uL (1.0-4.3) 01/29/18 09:26 Atkinson # (Auto) 0.8 K/uL (0.0-0.8) 01/29/18 09:26 Eos # (Auto) 0.3 K/uL (0.0-0.7) 01/29/18 09:26 Baso # (Auto) 0.1 K/uL (0.0-0.2) 01/29/18 09:26 Sodium 140 mmol/l (132-148) 01/25/18 05:50 Potassium 4.3 MMOL/L (3.6-5.0) 01/25/18 05:50 Chloride 101 mmol/L (98-107) 01/25/18 05:50 Carbon Dioxide 24 mmol/L (22-30) 01/25/18 05:50 Anion Gap 19 (10-20) 01/25/18 05:50 BUN 16 mg/dl (7-17) 01/25/18 05:50 Creatinine 1.0 mg/dl (0.7-1.2) 01/25/18 05:50 Est GFR ( Amer) > 60 01/25/18 05:50 Est GFR (Non-Af Amer) 56 01/25/18 05:50 Random Glucose 116 mg/dL (65-105) H 01/25/18 05:50 Calcium 9.2 mg/dL (8.4-10.2) 01/25/18 05:50 Total Bilirubin 0.9 mg/dl (0.2-1.3) 01/24/18 12:15 AST 39 U/L (14-36) H 01/24/18 12:15 ALT 42 U/L (9-52) 01/24/18 12:15 Alkaline Phosphatase 59 U/L (38-126) 01/24/18 12:15 Total Protein 8.3 G/DL (6.3-8.2) H 01/24/18 12:15 Albumin 4.3 g/dL (3.5-5.0) 01/24/18 12:15 Globulin 4.0 gm/dL (2.2-3.9) H 01/24/18 12:15 Albumin/Globulin Ratio 1.1 (1.0-2.1) 01/24/18 12:15 Vancomycin Trough < 5.0 ug/mL (5.0-10.0) L 01/27/18 15:39 - Hospital Course Hospital Course: 62 yo female with history of HTN and Glaucoma came in because of pain and swelling of the right elbow after banging it hard on a metal 6 days ago. Denied having fever or chills. Pt admitted and started on IV antibiotics. PICC line placed. ID consulted Wound c/s : Staph aureus 1. Cellulitis and abscess Right Elbow Afebrile, leukocytosis resolved , pain and swelling resolved WBC CT 17.5 now down to normal US of the right elbow: extensive subcutaneous edema without focal fluid collection Xray of elbow :negative ID consult with Dr Alarcon- rec PO Augmentin x 1 wk on discharge Wound C/S: MSSA Pt is on IV Vanco and Unasyn 2. HTN BP stable continue Amlodipine 3. Glaucoma continue eye drops 4. Constipation Lactulose DVT prophylaxis on Lovenox 40mg SC daily Discharge Exam - Head Exam Head Exam: ATRAUMATIC, NORMAL INSPECTION, NORMOCEPHALIC - Eye Exam Eye Exam: EOMI, Normal appearance Pupil Exam: NORMAL ACCOMODATION - ENT Exam ENT Exam: Mucous Membranes Moist, Normal External Ear Exam - Neck Exam Neck exam: Full Rom - Respiratory Exam Respiratory Exam: NORMAL BREATHING PATTERN. absent: Respiratory Distress - Cardiovascular Exam Cardiovascular Exam: REGULAR RHYTHM, +S1, +S2 - GI/Abdominal Exam GI & Abdominal Exam: Normal Bowel Sounds, Soft. absent: Tenderness - Extremities Exam Extremities exam: full ROM, normal capillary refill, pedal pulses present Additional comments: right arm swelling , erythema and tenderness improved - Back Exam Back exam: FULL ROM. absent: CVA tenderness (L), CVA tenderness (R), vertebral tenderness - Neurological Exam Neurological exam: Alert, CN II-XII Intact, Normal Gait, Oriented x3, Reflexes Normal - Psychiatric Exam Psychiatric exam: Normal Affect, Normal Mood - Skin Skin Exam: Dry, Normal Color, Warm Discharge Plan - Discharge Medications Prescriptions: Amoxicillin/Clavulanate [Augmentin 875 MG-125 MG] 1 tab PO BID #14 tab Mupirocin 2% Ointment [Bactroban Ointment] 22 applic TOP BID #1 tube - Follow Up Plan Condition: IMPROVED Disposition: HOME/ ROUTINE Instructions: Cellulitis (Skin Infection), Adult (DC) Additional Instructions: follow up with primary MD 1 week Referrals: Priscilla Alarcon MD [Staff Provider] - Tyrone Sanders MD [Family Provider] -
[2018-01-29 16:10] VITALS: BP 120/71; PULSE 60; RESP 20; TEMP 98
--- NOTE | 2018-02-03 10:38 | VASCULAR ---
PROCEDURE: Date of procedure: 01/27/2018 Procedure: 1. Placement of a left arm PICC with ultrasound and fluoroscopic guidance, CPT 75877 2. PICC tip confirmation with spot radiograph and is in the superior vena cava Medications: 1 percent lidocaine Total Fluoro time: 6.8 seconds Radiation: 1.15 MGy EBL: 3 cc HISTORY: Infection requiring long-term IV antibiotics TECHNIQUE: Following informed consent and procedure time-out, the patient placed supine on the interventional table and the left arm prepped and draped in the usual sterile fashion. Ultrasound showed a patent and compressible left basilic vein. After the skin was anesthetized with lidocaine, the basilic vein was accessed with micro micropuncture technique using ultrasound guidance. A guidewire was then advanced under fluoroscopic guidance into the superior vena cava. An image documenting ultrasound guidance for vascular access was permanently saved. The length of a single-lumen 4 [place] PICC was trimmed to 41 cm and advanced through a peel-away sheath. The PICC was position with tip of PICC confirm a spot radiograph the superior vena cava. The PICC was secured to the patient's skin. The PICC was flushed. A biopatch and sterile dressing was applied. IMPRESSION: Placement of a single-lumen 4 [place]ian PICC left basilic vein trimmed to 41 cm. The tip of the PICC is confirmed with spot radiograph and is in the superior vena cava.
== END 2018-01-29 17:45 | disposition home health service (06) | DRG 603 ==
LOC: H.ER 10:13 → INTOOBSV 16:16 → H.ERHOLD 16:16 → H.MEDSURG1 18:56 → OBSVTOIN 01-25 10:16
PROVIDERS: ADMIT Student in an Organized Health Care Education/Training Program; ATTEND Student in an Organized Health Care Education/Training Program
PROC: 02HV33Z Insertion of Infusion Device into Superior Vena Cava, Percutaneous Approach (ICD-10-PCS; principal; 2018-01-27)
PROC: B518ZZA Fluoroscopy of Superior Vena Cava, Guidance (ICD-10-PCS; 2018-01-27)
PROC: B548ZZA Ultrasonography of Superior Vena Cava, Guidance (ICD-10-PCS; 2018-01-27)
DX: L03.113 Cellulitis of right upper limb (principal); Z16.11 Resistance to penicillins; Z87.891 Personal history of nicotine dependence; M25.421 Effusion, right elbow; Z79.899 Other long term (current) drug therapy; R60.9 Edema, unspecified; R79.89 Other specified abnormal findings of blood chemistry; H40.9 Unspecified glaucoma; I10 Essential (primary) hypertension; K21.9 Gastro-esophageal reflux disease without esophagitis; K59.00 Constipation, unspecified; L02.413 Cutaneous abscess of right upper limb